=== PATIENT | male | born 1985 | race Two or more races ===

== ENCOUNTER 2021-08-02 22:26 | Emergency (ER) | payer MEDICAID, OTHER ==
[~2021-08-02] VITALS: Ht 175.3 cm; Wt 81.6 kg
[2021-08-02 22:30] VITALS: BP 110/68
== END 2021-08-02 23:54 | disposition left against medical advice (07) ==
LOC: ER 22:37
DX: M79.642 Pain in left hand (principal); Z53.21 Procedure and treatment not carried out due to patient leaving prior to being seen by health care provider; Y08.89XA Assault by other specified means, initial encounter; Y93.89 Activity, other specified; Y92.89 Other specified places as the place of occurrence of the external cause; Y99.8 Other external cause status

== ENCOUNTER 2022-08-29 01:53 | Emergency (ER) | payer MEDICAID ==
[~2022-08-29] VITALS: Ht 170.2 cm; Wt 70.3 kg
[2022-08-29 02:08] VITALS: BP 114/76
== END 2022-08-29 06:09 | disposition left against medical advice (07) ==
LOC: EDBD 01:53 → ER 01:53
DX: S62.337A Displaced fracture of neck of fifth metacarpal bone, left hand, initial encounter for closed fracture (principal); S62.326A Displaced fracture of shaft of fifth metacarpal bone, right hand, initial encounter for closed fracture; S00.81XA Abrasion of other part of head, initial encounter; Y04.2XXA Assault by strike against or bumped into by another person, initial encounter; Y93.89 Activity, other specified; Y92.89 Other specified places as the place of occurrence of the external cause; Y99.8 Other external cause status
CPT/HCPCS: 29125; 70450; 73110; 73130

== ENCOUNTER 2023-07-07 05:46 | Emergency (ER) | payer MEDICAID ==
[~2023-07-07] VITALS: Ht 182.9 cm; Wt 68.9 kg
[2023-07-07 07:09] LABS: Basophils # (auto) 0 10 ^3/uL (0-0.2); Basophils % (auto) 0.1 % (0.0-2.0); Eosinophils # (auto) 0 10 ^3/uL (0-0.8); Eosinophils % (auto) 0.5 % (0.0-7.0); Hematocrit 42.8 % (41.0-53.0); Hemoglobin 14.5 g/dL (13.5-17.5); Lymphocytes # (auto) 0.6 10 ^3/uL (0.4-5.4); Lymphocytes % (auto) 12.3 % (10.0-50.0); Mean Corpuscular Hemoglobin 30.1 pg (28.0-32.0); Mean Corpuscular Hgb Conc. 33.9 g/dL (32.0-36.0); Mean Corpuscular Volume 88.9 fL (80.0-100.0); Monocytes # (auto) 0.3 10 ^3/uL (0-1.3); Monocytes % (auto) 5.2 % (0.0-12.0); Neutrophils # (auto) 4.2 10 ^3/uL (1.6-8.6); Neutrophils % (auto) 81.9 % (37.0-80.0); Nucleated Red Blood Cells % 0.1 %; Red Blood Cells 4.81 10^6/uL (4.5-5.90); Red Cell Distribution Width 14.3 % (11.8-14.3); White Blood Cell 5.1 10^3/uL (4.4-10.8)
[2023-07-07 08:00] VITALS: PULSE 70; RESP 16; O2SAT 99
[2023-07-07 08:37] LABS: Alanine Aminotransferase 40 U/L (7-40); Alkaline Phosphatase 68 U/L (46-116); Anion Gap 7 (5-15); Aspartate Aminotransferase 34 U/L (13-40); BUN/Creatinine Ratio 11.5 (10.0-20.0); Blood Alcohol < 3.0 mg/dL (<10); Blood Urea Nitrogen 10 mg/dL (9-23); Calcium 9.5 mg/dL (8.5-10.1); Carbon Dioxide 26 mmol/L (20-30); Chloride 105 mmol/L (98-107); Glucose 83 mg/dL (74-106); Potassium 3.8 mmol/L (3.5-5.1); Sodium 138 mmol/L (136-145)
[2023-07-07 08:38] LABS: Albumin 5.1 g/dL (3.2-4.8); Total Protein 7.7 g/dL (5.7-8.2)
[2023-07-07 09:14] LABS: Acetaminophen < 2.0 UG/ML (10.0-20.0)
[2023-07-07 09:18] LABS: Salicylate < 3.0 mg/dL (2.8-20.0)
[2023-07-07 10:28] LABS: Urine Bacteria NONE SEEN /hpf (None Seen); Urine Blood Negative /uL (Negative); Urine Clarity Clear (Clear); Urine Color Yellow (Yellow); Urine Mucus FEW (None Seen); Urine Protein, UAD Negative (Negative); Urine Specific Gravity 1.015 (1.001-1.035); Urine WBC 3 /hpf (0 - 3)
[2023-07-07 10:38] LABS: Amphetamine Screen, Urine Pos (NEGATIVE)
[2023-07-07 10:39] LABS: Barbiturate Scree,Urine Neg (NEGATIVE); Benzodiazephine Screen, Urine Neg (NEGATIVE); Cannabinoid Screen, Urine Neg (NEGATIVE); Cocaine Screen, Urine Neg (NEGATIVE); Opiate Scree,Urine Neg (NEGATIVE); Phencyclidine Screen, Urine Neg (NEGATIVE)
[2023-07-07] MEDS ORDERED: SERT25TA84 PO (11:33)
[2023-07-07] MEDS ORDERED: QUET50TA PO (11:37)
[2023-07-07] MEDS ORDERED: QUEtiapine FUMARATE 25 MG TAB PO ONE (11:45)
[2023-07-07 12:00] VITALS: BP 127/77; PULSE 70; RESP 16; TEMP 98.9; O2SAT 99
== END 2023-07-07 12:53 | disposition home or self-care (01) ==
LOC: ER 05:46
DX: F60.9 Personality disorder, unspecified (principal); F15.10 Other stimulant abuse, uncomplicated; N39.0 Urinary tract infection, site not specified; G03.9 Meningitis, unspecified; F41.9 Anxiety disorder, unspecified
CPT/HCPCS: 36415; 80053; 80307; 80320; 80329; 81001; 85025

== ENCOUNTER 2024-08-01 22:51 | Emergency (ER) | payer MEDICAID ==
[~2024-08-01] VITALS: Ht 175.3 cm; Wt 66.0 kg
[~2024-08-01 22:51] MED LIST: FLUC200T50 PO; QUET50TA PO; SERT25TA84 PO
[2024-08-02 02:16] VITALS: BP 138/76; PULSE 102; RESP 18; O2SAT 98
== END 2024-08-02 02:12 | disposition left against medical advice (07) ==
LOC: EDUNIT# 22:51 → EDBD 22:51 → ER 22:51
DX: F19.10 Other psychoactive substance abuse, uncomplicated (principal); F41.9 Anxiety disorder, unspecified; Z79.899 Other long term (current) drug therapy

== ENCOUNTER 2024-08-15 15:27 | Emergency (ER) | payer MEDICAID ==
[~2024-08-15] VITALS: Ht 167.6 cm; Wt 59.0 kg
[2024-08-15 16:42] VITALS: BP 127/68; PULSE 112; RESP 20; TEMP 98.2; O2SAT 97
--- NOTE | 2024-08-15 16:42 | ED.PDOC ---
History of Present Illness HPI Comments 38 y.o male presents to the ED for an evaluation of anxiety. Patient reports using methamphetamine this past week, last use was 2 days ago. Patient has not been able to sleep and has not eaten for the past 5-6 days. Patient is looking for a place to sleep as he is experiencing homelessness at this time. Patient attempted to call his mother but no response back. No symptoms or pain reported at this time. Time Seen by MD: 16:36 Primary Care Provider: LAKISHA Granger Notes: Nurses Notes, Medications, Allergies Allergies: Coded Allergies: NO KNOWN ALLERGIES (Unverified , 08/29/22) Home Meds Active Scripts Fluconazole (Fluconazole) 200 Mg Tab, 4 TAB PO DAILY, #120 TAB Prov:MARISSA ASHTON MD 11/27/23 Quetiapine Fumerate (Seroquel) 50 Mg Tab, 1 TAB PO QPM for 30 Days, #30 TAB 2 Refills Prov:MARTIN GONSALVES MD 07/07/23 Sertraline Hcl (Zoloft) 25 Mg Tab, 1 TAB PO DAILY for 30 Days, #30 TAB 2 Refills Prov:MARTIN GONSALVES MD 07/07/23 Information Source: Patient Mode of Arrival: Ambulatory Severity: Mild Timing: Hours Duration: Since onset Past Medical History PAST MEDICAL HISTORY: Anxiety, HIV Surgical History: Denies all surgeries Family History Family History: Unknown Social History Smoker: Non-Smoker Alcohol: Occasionally Drugs: Methamphetamine Lives In: Homeless Constitutional: reports: weakness; denies: chills, diaphoresis, fatigue, fever, malaise, sweats, others EENTM: denies: blurred vision, double vision, ear bleeding, ear discharge, ear drainage, ear pain, ear ringing, eye pain, eye redness, hearing loss, mouth pain, mouth swelling, nasal discharge, nose bleeding, nose congestion, nose pain, photophobia, tearing, throat pain, throat swelling, voice changes, others Respiratory: denies: cough, hemoptysis, orthopnea, SOB at rest, shortness of breath, SOB with excertion, stridor, wheezing, others Cardiovascular: denies: chest pain, dizzy spells, diaphoresis, Dyspnea on exertion, edema, irregular heart beat, left arm pain, lightheadedness, palpitations, PND, syncope, others Gastrointestinal: denies: abdomen distended, abdominal pain, blood streaked bowels, constipated, diarrhea, dysphagia, difficulty swallowing, hematemesis, melena, nausea, poor appetite, poor fluid intake, rectal bleeding, rectal pain, vomiting, others Genitourinary: denies: burning, dysuria, flank pain, frequency, hematuria, incontinence, penile discharge, penile sore, pain, testicle pain, testicle swelling, urgency, others Neurological: denies: dizziness, fainting, headache, left sided numbness, left sided weakness, numbness, paresthesia, pre-existing deficit, right sided numbness, right sided weakness, seizure, speech problems, tingling, tremors, weakness, others Musculoskeletal: denies: back pain, gout, joint pain, joint swelling, muscle pain, muscle stiffness, neck pain, others Integumetry: denies: bruises, change in color, change in hair/nails, dryness, laceration, lesions, lumps, rash, wounds, others Allergic/Immunocompromised: denies: Difficulty Healing, Frequent Infections, Hives, Itching, others Hematologic/Lymphatic: denies: anemia, blood clots, easy bleeding, easy bruising, swollen glands, others Endocrine: denies: excessive hunger, excessive sweating, excessive thirst, excessive urination, flushing, intolerance to cold, intolerance to heat, unexplained weight gain, unexplained weight loss, others Psychiatric: denies: anxiety, bipolar disorder, depression, hopeless, panic disorder, schizophrenia, sleepless, suicidal, others All Other Systems: Reviewed and Negative Physical Exam General Appearance: No Apparent Distress HEENT: Normal ENT Inspection, Pharynx Normal, TMs Normal Neck: Full Range of Motion, Non-Tender, Normal, Normal Inspection Respiratory: Chest Non-Tender, Lungs Clear, No Accessory Muscle Use, No Respiratory Distress, Normal Breath Sounds Cardiovascular: No Edema, No JVD, No Murmur, No Gallop, Normal Peripheral Pulses, Regular Rate/Rhythm Breast Exam: Deferred Gastrointestinal: No Organomegaly, Non Tender, No Pulsatile Mass, Normal Bowel Sounds, Soft Genitalia: Deferred Pelvic: Deferred Rectal: Deferred Extremities: No calf tenderness, Normal capillary refill, Normal inspection, Normal range of motion, Non-tender, No pedal edema Musculoskeletal : Apperance: Normal Neurologic: Alert, tool design checker II-XII nml as Tested, No Motor Deficits, No Sensory Deficits, Other (Mild anxiety) Cerebellar Function: Normal Reflexes: Normal Skin: Dry, Normal Color, Warm Lymphatic: No Adenopathy Was a procedure done? Was a procedure done?: No Differential Dx Considerations may include: Anxiety, Substance abuse, X-Ray, Labs, Meds, VS Vital Signs Date Time Temp Pulse Resp B/P (MAP) Pulse Ox O2 Delivery O2 Flow Rate FiO2 08/15/24 16:42 98.2 112 20 127/68 (87) 97 98.2 08/15/24 16:42 98.2 112 20 127/68 (87) 97 At this time, the patient was being discharged We did contact binder caser and she did arrange for the patient to go to a rehab center He did get a bed The patient was discharged. Time of 1ST Reevaluation: 16:40 Reevaluation 1ST: Unchanged Time of 2ND Reevaluation: 17:51 Reevaluation 2ND: Improved Patient Education/Counseling: Diagnosis, Treatment, Prognosis, Need For Follow Up Family Education/Counseling: No Family Present Departure 1 Departure Time of Disposition: 17:51 Impression: Primary Impression: Amphetamine abuse Additional Impression: Acute anxiety Disposition: 01 HOME / SELF CARE / HOMELESS Condition: Fair Discharged With: Self Critical Care Note Critical Care Time?: No Stability Stability form required: No I personally scribed for JOSE LUIS BARNEY MD ([email or web address]) on 08/15/24 at 16:42. Electronically submitted by Gretel Wheeler ([facility]). JOSE LUIS BARNEY MD Aug 15, 2024 16:42
== END 2024-08-15 17:51 | disposition home or self-care (01) ==
LOC: ER 15:27
DX: F15.10 Other stimulant abuse, uncomplicated (principal); F41.9 Anxiety disorder, unspecified; Z59.00 Homelessness unspecified; Z79.899 Other long term (current) drug therapy

== ENCOUNTER 2024-08-22 11:23 | Emergency (ER) | payer MEDICAID ==
[~2024-08-22] VITALS: Ht 172.7 cm; Wt 70.0 kg
[2024-08-22 12:03] VITALS: BP 123/74; PULSE 103; RESP 18; TEMP 98.7; O2SAT 98
--- NOTE | 2024-08-22 12:12 | ED.PDOC ---
Musculoskeletal HPI Comments A 38 YEAR OLD MALE BROUGHT IN BY AMBULANCE PRESENTS TO THE ED WITH COMPLAINT OF RIGHT THIGH PAIN THAT RADIATES DOWN. PATIENT STATES THAT HE HAS BEEN WALKING EVERY DAY AND NOTES THAT THIS HAS BEEN CAUSING PAIN IN HIS RIGHT THIGH THAT RADIATES DOWN HIS RIGHT LEG. PATIENT NOTES THAT HE HAS NO PAIN WHEN RESTING. PATIENT STATES THAT HE THINKS IT IS JUST MUSCLE PAIN AND WOULD LIKE PAIN MEDICINE. PATIENT DENIES FEVER, CHILLS, SHORTNESS OF BREATH, CHEST PAIN, ABDOMINAL PAIN, NAUSEA, VOMITING, HEADACHE, OR OTHER COMPLAINTS. NO OTHER SYMPTOMS OR MODIFYING FACTORS AT THIS TIME. PATIENT IS ALERT, ORIENTED X 4, AND HAS STEADY GAIT. Chief Complaint: Lower Extremity Time Seen by MD: 11:43 Primary Care Provider: "CALL MY MOTHER" Reviewed Notes: Nurses Notes, Sales Team Member Notes, Medications, Allergies Allergies: Coded Allergies: NO KNOWN ALLERGIES (Unverified , 08/29/22) Home Meds Active Scripts Fluconazole (Fluconazole) 200 Mg Tab, 4 TAB PO DAILY, #120 TAB Prov:MARISSA ASHTON MD 11/27/23 Quetiapine Fumerate (Seroquel) 50 Mg Tab, 1 TAB PO QPM for 30 Days, #30 TAB 2 Refills Prov:MARTIN GONSALVES MD 07/07/23 Sertraline Hcl (Zoloft) 25 Mg Tab, 1 TAB PO DAILY for 30 Days, #30 TAB 2 Refills Prov:MARTIN GONSALVES MD 07/07/23 Information Source: Patient, Emergency Med Personnel Mode of Arrival: EMS Location: Right Extremity Location: Knee, Thigh Timing: Days Prehospital treatment: None Severity: Moderate Able to Move Extremity: Yes Bear Weight: Fully Pain: Moderate Mechanism: No Trauma, Spontaneous Circumstances: Spontaneous Symptoms: Pain DVT Risk Factors: NONE Last Tetanus: UTD, Unknown Associated signs and symptoms: Knee pain, Thigh pain, Leg pain Past Medical History PAST MEDICAL HISTORY: Anxiety, HIV Surgical History: Denies all surgeries Family History Family History: Reviewed,noncontributory to illness Social History Smoker: Non-Smoker Alcohol: Occasionally Drugs: Methamphetamine Lives In: Homeless Constitutional: denies: chills, diaphoresis, fatigue, fever, malaise, sweats, weakness, others EENTM: denies: blurred vision, double vision, ear bleeding, ear discharge, ear drainage, ear pain, ear ringing, eye pain, eye redness, hearing loss, mouth pain, mouth swelling, nasal discharge, nose bleeding, nose congestion, nose pain, photophobia, tearing, throat pain, throat swelling, voice changes, others Respiratory: denies: cough, hemoptysis, orthopnea, SOB at rest, shortness of breath, SOB with excertion, stridor, wheezing, others Cardiovascular: denies: chest pain, dizzy spells, diaphoresis, Dyspnea on exertion, edema, irregular heart beat, left arm pain, lightheadedness, palpitations, PND, syncope, others Gastrointestinal: denies: abdomen distended, abdominal pain, blood streaked bowels, constipated, diarrhea, dysphagia, difficulty swallowing, hematemesis, melena, nausea, poor appetite, poor fluid intake, rectal bleeding, rectal pain, vomiting, others Genitourinary: denies: burning, dysuria, flank pain, frequency, hematuria, incontinence, penile discharge, penile sore, pain, testicle pain, testicle swelling, urgency, others Neurological: denies: dizziness, fainting, headache, left sided numbness, left sided weakness, numbness, paresthesia, pre-existing deficit, right sided numbness, right sided weakness, seizure, speech problems, tingling, tremors, weakness, others Musculoskeletal: reports: muscle pain, others (RIGHT THIGH PAIN THAT RADIATES DOWN HIS RIGHT LEG); denies: back pain, gout, joint pain, joint swelling, muscle stiffness, neck pain Integumetry: denies: bruises, change in color, change in hair/nails, dryness, laceration, lesions, lumps, rash, wounds, others Allergic/Immunocompromised: denies: Difficulty Healing, Frequent Infections, Hives, Itching, others Hematologic/Lymphatic: denies: anemia, blood clots, easy bleeding, easy bruising, swollen glands, others Endocrine: denies: excessive hunger, excessive sweating, excessive thirst, excessive urination, flushing, intolerance to cold, intolerance to heat, unexplained weight gain, unexplained weight loss, others Psychiatric: denies: anxiety, bipolar disorder, depression, hopeless, panic disorder, schizophrenia, sleepless, suicidal, others All Other Systems: Reviewed and Negative Physical Exam General Appearance: No Apparent Distress, Normal HEENT: Normal ENT Inspection, PERRL/EOMI, Pharynx Normal, TMs Normal Neck: Full Range of Motion, Non-Tender, Normal, Normal Inspection Respiratory: Chest Non-Tender, Lungs Clear, No Accessory Muscle Use, No Respiratory Distress, Normal Breath Sounds Cardiovascular: No Edema, No JVD, No Murmur, No Gallop, Normal Peripheral Pulses, Regular Rate/Rhythm Breast Exam: Deferred Gastrointestinal: No Organomegaly, Non Tender, No Pulsatile Mass, Normal Bowel Sounds, Soft Genitalia: Deferred Pelvic: Deferred Rectal: Deferred Extremities: No calf tenderness, Normal capillary refill, Normal inspection, Normal range of motion, No pedal edema, Tender (AND MUSCLE SPASM ON RIGHT THIGH TO RIGHT LOWER LEG, NO ERYTHEMA AND SWELLING AND DVT SIGNS OF RIGHT LOWER EXTREMITY. ) Musculoskeletal : Apperance: Normal Neurologic: Alert, biller II-XII nml as Tested, No Motor Deficits, Normal Affect, Normal Mood, No Sensory Deficits Cerebellar Function: Normal Reflexes: Normal Skin: Dry, Normal Color, Warm Peripheral Pulses: 2+ carotid (R), 2+ carotid (L), 2+ dorsalis pedis (R), 2+ dorsalis pedis (L) Lymphatic: No Adenopathy Was a procedure done? Was a procedure done?: No Differential Diagnosis EXT Differential Diagnosis: Sprain, Strain, Other Other Differential Diagnosis MUSCLE SPASM X-Ray, Labs, Meds, VS Vital Signs Date Time Temp Pulse Resp B/P (MAP) Pulse Ox O2 Delivery O2 Flow Rate FiO2 08/22/24 12:03 103 18 98 Room Air 08/22/24 12:03 98.7 103 18 123/74 (90) 98 98.7 08/22/24 11:27 98.7 103 18 123/74 (90) 98 Current Medications Medications (Trade) Dose Ordered Sig/Katherin Route Start Time Stop Time Status Last Admin Ketorolac Tromethamine (Toradol Injection) 60 mg ONCE ONCE IM 08/22/24 12:15 08/22/24 12:16 DC 08/22/24 12:15 X-Ray, Labs, Meds, VS Comment TREATMENT: TORADOL 60 MG IM Time of 1ST Reevaluation: 12:30 Reevaluation 1ST: Improved Patient Education/Counseling: Diagnosis, Treatment, Need For Follow Up Family Education/Counseling: Diagnosis, Treatment, Need For Follow Up Medical Screening: No EMC Exist At This Time Departure 1 Departure Time of Disposition: 12:30 Impression: Primary Impression: Muscle strain of right lower extremity Qualified Codes: S86.911A - Strain of unspecified muscle(s) and tendon(s) at lower leg level, right leg, initial encounter Disposition: HOME / SELF CARE / HOMELESS Condition: Stable Additional Instructions: FOLLOW-UP WITH PCP IN 1 TO 2 DAYS. TAKE MEDICATIONS PRESCRIBED. RETURN TO ED FOR ANY NEW OR WORSENING SYMPTOMS. e-Prescriptions Baclofen (Baclofen) 10 Mg Tab 10 MG PO BID, #20 TAB Prov: OSIRIS OLIVAREZ 08/22/24 Naproxen (Naproxen) 500 Mg Tab 500 MG PO BID, #30 TAB Prov: OSIRIS OLIVAREZ 08/22/24 Discharged With: Self Critical Care Note Critical Care Time?: No Stability Stability form required: No I personally scribed for OSIRIS OLIVAREZ ([email or web address]) on 08/22/24 at 12:12. Electronically submitted by David Rush ([email or web address]). OSIRIS OLIVAREZ Aug 22, 2024 12:12
[2024-08-22] MEDS: KETOROLAC TROMETH 60MG/2ML VIAL IM ONE (12:15)
[2024-08-22] MEDS ORDERED: BACL10TA PO (12:20)
[2024-08-22] MEDS ORDERED: NAPR-746 PO (12:20)
== END 2024-08-22 12:54 | disposition home or self-care (01) ==
LOC: EDBD 11:23 → ER 11:23
DX: S86.911A Strain of unspecified muscle(s) and tendon(s) at lower leg level, right leg, initial encounter (principal); F41.9 Anxiety disorder, unspecified; F15.10 Other stimulant abuse, uncomplicated; Z59.00 Homelessness unspecified; Z79.899 Other long term (current) drug therapy; X58.XXXA Exposure to other specified factors, initial encounter; Y93.01 Activity, walking, marching and hiking; Y92.89 Other specified places as the place of occurrence of the external cause; Y99.8 Other external cause status
CPT/HCPCS: 96372; 99283; J1885

== ENCOUNTER 2025-02-08 07:47 | Emergency (ER) | payer MEDICAID ==
[~2025-02-08] VITALS: Ht 172.7 cm; Wt 77.2 kg
[~2025-02-08 07:47] MED LIST changes: +BACL10TA PO; +NAPR-746 PO
--- NOTE | 2025-02-08 07:58 | ED.PDOC ---
History of Present Illness HPI Comments 39M BIBA w/ prior MHx of HIV, Anxiety, Meningitis and the c/c of Gen Weak. EMS report that the pt's body collapsed out in the dirt field, on the other side of the [facility] parking lot, unable to get up and move since yesterday. Pt notes that eating/drinking does not help. Social Hx of Methamphetamine use, but denies tobacco and alcohol use. Denies chills, fever, N/V/D, SOB, CP. No other associated symptoms, modifiers, recent injuries or sick contacts present at this time. Chief Complaint: General Weakness Time Seen by MD: 07:45 Primary Care Provider: "CALL MY MOTHER" Reviewed Notes: Nurses Notes, Mail Deliverer Notes, Medications, Allergies Allergies: Coded Allergies: NO KNOWN ALLERGIES (Unverified , 08/29/22) Home Meds Active Scripts Baclofen (Baclofen) 10 Mg Tab, 10 MG PO BID, #20 TAB Prov:OSIRIS OLIVAREZ 08/22/24 Naproxen (Naproxen) 500 Mg Tab, 500 MG PO BID, #30 TAB Prov:OSIRIS OLIVAREZ 08/22/24 Fluconazole (Fluconazole) 200 Mg Tab, 4 TAB PO DAILY, #120 TAB Prov:MARISSA ASHTON MD 11/27/23 Quetiapine Fumerate (Seroquel) 50 Mg Tab, 1 TAB PO QPM for 30 Days, #30 TAB 2 Refills Prov:MARTIN GONSALVES MD 07/07/23 Sertraline Hcl (Zoloft) 25 Mg Tab, 1 TAB PO DAILY for 30 Days, #30 TAB 2 Refills Prov:MARTIN GONSALVES MD 07/07/23 Information Source: Patient, Emergency Med Personnel Mode of Arrival: EMS Severity: Moderate Timing: Hours Duration: Since onset, Hours Prehospital treatment: None Past Medical History PAST MEDICAL HISTORY: Anxiety, HIV Past Medical History (Other): Meningitis Surgical History: Denies all surgeries Family History Family History: Reviewed,noncontributory to illness, Unknown Social History Smoker: Non-Smoker Alcohol: Denies ETOH Use Drugs: Methamphetamine Lives In: Homeless Constitutional: reports: weakness; denies: chills, diaphoresis, fatigue, fever, malaise, sweats, others EENTM: denies: blurred vision, double vision, ear bleeding, ear discharge, ear drainage, ear pain, ear ringing, eye pain, eye redness, hearing loss, mouth pain, mouth swelling, nasal discharge, nose bleeding, nose congestion, nose pain, photophobia, tearing, throat pain, throat swelling, voice changes, others Respiratory: denies: cough, hemoptysis, orthopnea, SOB at rest, shortness of breath, SOB with excertion, stridor, wheezing, others Cardiovascular: denies: chest pain, dizzy spells, diaphoresis, Dyspnea on exertion, edema, irregular heart beat, left arm pain, lightheadedness, palpitations, PND, syncope, others Gastrointestinal: denies: abdomen distended, abdominal pain, blood streaked bowels, constipated, diarrhea, dysphagia, difficulty swallowing, hematemesis, melena, nausea, poor appetite, poor fluid intake, rectal bleeding, rectal pain, vomiting, others Genitourinary: denies: burning, dysuria, flank pain, frequency, hematuria, incontinence, penile discharge, penile sore, pain, testicle pain, testicle swelling, urgency, others Neurological: denies: dizziness, fainting, headache, left sided numbness, left sided weakness, numbness, paresthesia, pre-existing deficit, right sided n umbness, right sided weakness, seizure, speech problems, tingling, tremors, weakness, others Musculoskeletal: denies: back pain, gout, joint pain, joint swelling, muscle pain, muscle stiffness, neck pain, others Integumetry: denies: bruises, change in color, change in hair/nails, dryness, laceration, lesions, lumps, rash, wounds, others Allergic/Immunocompromised: denies: Difficulty Healing, Frequent Infections, Hives, Itching, others Hematologic/Lymphatic: denies: anemia, blood clots, easy bleeding, easy bruising, swollen glands, others Endocrine: denies: excessive hunger, excessive sweating, excessive thirst, excessive urination, flushing, intolerance to cold, intolerance to heat, unexplained weight gain, unexplained weight loss, others Psychiatric: denies: anxiety, bipolar disorder, depression, hopeless, panic disorder, schizophrenia, sleepless, suicidal, others All Other Systems: Reviewed and Negative Physical Exam General Appearance: No Apparent Distress HEENT: Normal ENT Inspection, Pharynx Normal, TMs Normal Neck: Full Range of Motion, Non-Tender, Normal, Normal Inspection Respiratory: Chest Non-Tender, Lungs Clear, No Accessory Muscle Use, No Respiratory Distress, Normal Breath Sounds Cardiovascular: No Edema, No JVD, No Murmur, No Gallop, Normal Peripheral Pulses, Regular Rate/Rhythm Breast Exam: Deferred Gastrointestinal: No Organomegaly, Non Tender, No Pulsatile Mass, Normal Bowel Sounds, Soft Genitalia: Deferred Pelvic: Deferred Rectal: Deferred Extremities: No calf tenderness, Normal capillary refill, Normal inspection, Normal range of motion, Non-tender, No pedal edema Musculoskeletal : Apperance: Normal Neurologic: Alert, senior sales administrator II-XII nml as Tested, Motor Weakness, Normal Affect, Normal Mood, No Sensory Deficits Cerebellar Function: Normal Reflexes: Normal Skin: Dry, Normal Color, Warm Lymphatic: No Adenopathy Was a procedure done? Was a procedure done?: No Differential Dx Considerations may include: Generalized weakness, electrolyte imbalance, dehydration X-Ray, Labs, Meds, VS Vital Signs Date Time Temp Pulse Resp B/P (MAP) Pulse Ox O2 Delivery O2 Flow Rate FiO2 02/08/25 07:47 97.7 88 16 126/81 (96) 96 97.7 Lab Test 02/08/25 08:16 Range/Units White Blood Count 7.5 4.4-10.8 10^3/uL Red Blood Count 5.15 4.5-5.90 10^6/uL Hemoglobin 15.5 13.5-17.5 g/dL Hematocrit 45.0 41.0-53.0 % Mean Corpuscular Volume 87.5 80.0-100.0 fL Mean Corpuscular Hemoglobin 30.2 28.0-32.0 pg Mean Corpuscular Hemoglobin Concent 34.5 32.0-36.0 g/dL Red Cell Distribution Width 13.2 11.8-14.3 % Platelet Count 222 140-450 10^3/uL Mean Platelet Volume 7.2 6.9-10.8 fL Neutrophils (%) (Auto) 80.2 H 37.0-80.0 % Lymphocytes (%) (Auto) 11.3 10.0-50.0 % Monocytes (%) (Auto) 5.9 0.0-12.0 % Eosinophils (%) (Auto) 2.1 0.0-7.0 % Basophils (%) (Auto) 0.5 0.0-2.0 % Neutrophils # (Auto) 6.0 1.6-8.6 10 ^3/uL Lymphocytes # (Auto) 0.9 0.4-5.4 10 ^3/uL Monocytes # (Auto) 0.4 0-1.3 10 ^3/uL Eosinophils # (Auto) 0.2 0-0.8 10 ^3/uL Basophils # (Auto) 0 0-0.2 10 ^3/uL Nucleated Red Blood Cells 1.0 % Sodium Level 142 136-145 mmol/L Potassium Level 4.1 3.5-5.1 mmol/L Chloride Level 107 98-107 mmol/L Carbon Dioxide Level 26 20-31 mmol/L Anion Gap 9 5-15 Blood Urea Nitrogen 21 9-23 mg/dL Creatinine 0.89 0.700-1.30 mg/dL Glomerular Filtration Rate Calc 113 >90 mL/min BUN/Creatinine Ratio 23.6 H 10.0-20.0 Serum Glucose 74 74-106 mg/dL Calcium Level 10.2 8.7-10.4 mg/dL Plasma/Serum Blood Alcohol < 3.0 <10 mg/dL The patient's CBC is within normal limits The chemistry panel is within normal limits Alcohol level is negative The patient was being discharged and will follow up with the primary care doctor The patient will return to the emergency department's condition worsens. Time of 1ST Reevaluation: 08:15 Reevaluation 1ST: Unchanged Patient Education/Counseling: Diagnosis, Treatment, Prognosis, Need For Follow Up Family Education/Counseling: No Family Present Departure 1 Departure Time of Disposition: 09:18 Impression: Primary Impression: Generalized weakness Disposition: 01 HOME / SELF CARE / HOMELESS Condition: Fair Discharged With: Self Critical Care Note Critical Care Time?: No Stability Stability form required: No Heart Score Heart Score: Heart Score Response (Comments) Value History N/A 0 EKG N/A 0 Age N/A 0 Risk Factors N/A 0 Troponin N/A 0 Total 0 I personally scribed for JOSE LUIS BARNEY MD ([email or web address]) on 02/08/25 at 07:58. Electronically submitted by Memo Kaye ([email or web address]). JOSE LUIS BARNEY MD February 08, 2025 07:58
[2025-02-08] MEDS: SODIUM CHLORIDE 0.9% 1,000 ML IV ONE (08:00)
[2025-02-08 08:25] LABS: Basophils # (auto) 0 10 ^3/uL (0-0.2); Basophils % (auto) 0.5 % (0.0-2.0); Eosinophils # (auto) 0.2 10 ^3/uL (0-0.8); Eosinophils % (auto) 2.1 % (0.0-7.0); Hemoglobin 15.5 g/dL (13.5-17.5); Lymphocytes # (auto) 0.9 10 ^3/uL (0.4-5.4); Lymphocytes % (auto) 11.3 % (10.0-50.0); Mean Corpuscular Hemoglobin 30.2 pg (28.0-32.0); Mean Corpuscular Hgb Conc. 34.5 g/dL (32.0-36.0); Mean Corpuscular Volume 87.5 fL (80.0-100.0); Monocytes # (auto) 0.4 10 ^3/uL (0-1.3); Monocytes % (auto) 5.9 % (0.0-12.0); Neutrophils % (auto) 80.2 % (37.0-80.0); Platelet Count (auto) 222 10^3/uL (140-450); Red Blood Cells 5.15 10^6/uL (4.5-5.90); Red Cell Distribution Width 13.2 % (11.8-14.3); White Blood Cell 7.5 10^3/uL (4.4-10.8)
[2025-02-08 08:33] LABS: Potassium 4.1 mmol/L (3.5-5.1); Sodium 142 mmol/L (136-145)
[2025-02-08 08:34] LABS: Anion Gap 9 (5-15); Carbon Dioxide 26 mmol/L (20-31)
[2025-02-08 08:35] LABS: Calcium 10.2 mg/dL (8.7-10.4)
[2025-02-08 08:39] LABS: Chloride 107 mmol/L (98-107)
[2025-02-08 08:40] LABS: BUN/Creatinine Ratio 23.6 (10.0-20.0); Blood Urea Nitrogen 21 mg/dL (9-23); Glucose 74 mg/dL (74-106)
[2025-02-08 08:41] LABS: Blood Alcohol < 3.0 mg/dL (<10)
[2025-02-08 09:58] VITALS: BP 117/75; PULSE 75; RESP 17; TEMP 98.4; O2SAT 90
== END 2025-02-08 10:03 | disposition home or self-care (01) ==
LOC: ER 07:47 → EDBD 07:47 → ER 09:40
DX: R53.1 Weakness (principal); F41.9 Anxiety disorder, unspecified; F15.90 Other stimulant use, unspecified, uncomplicated; Z79.899 Other long term (current) drug therapy; Z59.00 Homelessness unspecified
CPT/HCPCS: 36415; 80048; 80320; 85025